=== PATIENT | male | born 1965 ===

== ENCOUNTER 2020-06-13 05:14 | Day surgery (SDC) | payer BC ==
[2020-06-09 14:45] VITALS: BMI 32.9
[2020-06-13 09:34] VITALS: TEMP 96.9
[2020-06-13 10:04] VITALS: BP 123/83; PULSE 70
--- NOTE | 2020-06-16 11:05 | PATH ---
Surgical Pathology Report Patient Name: KEANU EL [facility]. Rec. #: [id number] /Age/Gender: 1965 (Age: 55) / M Account: [id number] Location: [facility]-ENDOSCOPY Taken: 06/13/2020 Received: 06/13/2020 Reported: 06/16/2020 Physicians: Jairo Thomas M.D. Specimen(s) Received A: ASCENDING COLON POLYP B: RECTAL POLYPS Clinical History Colon cancer screening Postoperative diagnosis: Descending colon polyp, 2 rectal polyps Final Diagnosis A. ASCENDING COLON, POLYP, BIOPSY: TUBULAR ADENOMA. B. RECTAL POLYPS, POLYPECTOMY: HYPERPLASTIC POLYP(S). Electronically Signed Camila Lance M.D. Gross Description A. Received in formalin, labeled "ascending colon polyp" is a palacios, irregular portion of soft tissue measuring 0.4 cm. in greatest dimension. The specimen is submitted in toto in one cassette. B. Received in formalin, labeled "rectal polyps" are 2 palacios, irregular portions of soft tissue averaging 0.3 cm. in greatest dimension. The specimens are submitted in toto in one cassette. DL/06/13/2020 saudi/06/13/2020
== END 2020-06-13 11:15 | disposition home or self-care (01) ==
LOC: JASU-ENDO 05:14
PROVIDERS: ATTEND Internal Medicine Gastroenterology
PROC: 0DBK8ZX Excision of Ascending Colon, Via Natural or Artificial Opening Endoscopic, Diagnostic (ICD-10-PCS; 2020-06-13)
PROC: 0DBP8ZX Excision of Rectum, Via Natural or Artificial Opening Endoscopic, Diagnostic (ICD-10-PCS; 2020-06-13)
PROC: 0DBP8ZX Excision of Rectum, Via Natural or Artificial Opening Endoscopic, Diagnostic (ICD-10-PCS; principal; 2020-06-13 09:00)
DX: Z12.11 Encounter for screening for malignant neoplasm of colon (principal); D12.2 Benign neoplasm of ascending colon; K62.1 Rectal polyp; K64.8 Other hemorrhoids; E11.9 Type 2 diabetes mellitus without complications; I10 Essential (primary) hypertension; E78.00 Pure hypercholesterolemia, unspecified
CPT/HCPCS: 82962; 88305-TC